=== PATIENT | male | born 1950 | race Caucasian/White ===

== ENCOUNTER 2022-05-21 18:11 | Outpatient (RCR) | payer SELFPAY | END 2023-01-01 15:57 | disposition home or self-care (01) | LOC: MOW 18:11 | PROVIDERS: PCP Internal Medicine; Visit Provider Internal Medicine | DX: Z76.0 Encounter for issue of repeat prescription (principal) | CPT/HCPCS: S5170 ==

== ENCOUNTER 2022-05-24 10:36 | Outpatient (CLI) | payer OTHER, SELFPAY | END 2022-05-24 10:37 | disposition home or self-care (01) | LOC: RAD 10:39 | PROVIDERS: PCP Internal Medicine | DX: R60.9 Edema, unspecified (principal); I50.9 Heart failure, unspecified | CPT/HCPCS: 93306 ==

== ENCOUNTER 2023-06-17 11:01 | Emergency (ER) | payer MEDICARE, OTHER, SELFPAY ==
[2023-06-17 11:07] VITALS: BP 123/75; PULSE 68; RESP 18; TEMP 36.4; O2SAT 95; BMI 39.5
--- NOTE | 2023-06-17 11:09 | ED_ITS ---
HPI - Abdominal Pain General Time Seen by Provider: 11:09 Date Seen: 06/17/23 Chief Complaint: Abdominal Pain Stated Complaint: abdominal pain Time Seen by Provider: 06/17/23 11:08 Source: patient and RN notes reviewed Mode of arrival: ambulatory Limitations: no limitations History of Present Illness HPI narrative: This 73-year-old gentleman is ambulatory into the ED with concern of possible diverticulitis as well as shingles. He last had a bowel movement on Friday, after the bowel movement started to have left flank/abdominal pain. He feels warm today but it is very warm outside, no definite documented fever. Not really passing much gas, no bowel movement since Friday, today is Friday. He does have a history of diverticulitis. He has a asymptomatic kidney stone that is known to be in the right urinary system and has not passed that he knows of. He is primarily a [facility] patient, do not have a current medication list. He has also had a history of diverticulitis before, he has been seen both at the [facility] and here for that. No nausea vomiting, no change in urinary symptoms. He noticed he could not sleep last night, was having left sided severe back pain/flank pain. He noted a rash in his left back that just has cropped up in the last 2 hours. He has had shingles before and the area on his back definitely feels like this. Current medications are MiraLax 17 g daily p.r.n., omeprazole 40 mg daily, lubricant eyedrops, atorvastatin 20 mg, 10 at bedtime, prazosin 5 mg at bedtime, Zyrtec 10 mg daily, vitamin D3 1000 unit with 2 tablets daily, semaglutide 0.5 mg weekly, senna 2 tablets at bedtime does and I would 0.05% topical, fluticasone nasal spray, ketoconazole 2% topical, diclofenac 1% topical gel, ketoconazole 2% topical shampoo, tamsulosin 0.4 mg daily, sertraline in taper, duloxetine 30 mg daily, hydroxychloroquine 200 mg b.i.d., melatonin 3 mg at bedtime, propranolol 20 mg b.i.d. MD elicited complaint: abdominal pain and flank pain Pertinent past history: diverticulitis and kidney stones Onset (ago): day(s) Related Data Previous Rx's Medication Instructions Recorded valacyclovir 1 gram tablet 1,000 mg PO TID #21 tabs 06/17/23 Allergies Allergy/AdvReac Type Severity Reaction Status Date / Time pantoprazole Allergy Unknown Unknown Unverified 06/17/23 12:35 Review of Systems Status of ROS Reports: 6 or more systems reviewed and unremarkable except as noted in History and below PFSH PFSH Social History Smoking Status: Former smoker How often do you have a drink containing alcohol: never AUDIT-C Alcohol total score: 0 Non-prescribed substance use: denies use Exam Const: Vital Signs, click to edit/add: Vital Signs - 24 hr 06/17/23 11:07 Temperature 97.6 F Pulse Rate [Right Pulse Oximeter] 68 Respiratory Rate 18 Blood Pressure [Ri ght Upper Arm] 123/75 Pulse Oximetry 95 Oxygen Delivery Me thod Room Air Documenting provider has reviewed patient's vital signs: yes Common normals: no apparent distress, oriented x3, no limitations, healthy appearing, alert and well nourished General appearance: cooperative, comfortable, well kempt and well developed Nutritional appearance: obese Other: Ambulatory into the ED of his own accord, gait is normal. This is very pleasant conversive patient. HENMT: Common normals: normocephalic, head/scalp atraumatic, hearing grossly normal bilaterally and external nose normal Head and scalp: normocephalic and atraumatic Face and sinus: normal facial exam Nose: external nose normal Eye: Common normals: PERRL, EOMs intact bilaterally, conjunctivae normal and no scleral icterus Conjunctiva: conjunctiva(e) normal Pupil: PERRL Neck & C-Spine: Common normals: full ROM, no lymphadenopathy and supple Chest: Other: At the lower thoracic, upper lumbar region on the left side, has an erythematous patch of rash, macular papular with a few sites looking like there are small vesicles developing, rash is tender, painful on palpation. Looks like this could be an early shingles rash. Resp: Common normals: normal respiratory effort, no retractions, no use of accessory muscles and clear to auscultation bilaterally Effort & inspection: able to speak in complete sentences Auscultation: clear to auscultation bilaterally Cardio: Common normals: regular rate, regular rhythm, S1 normal heart sound, S2 normal heart sound, no gallops, no clicks and no murmurs Rate: regular rate Rhythm: regular rhythm Heart sounds: S1 normal and S2 normal GI: Common normals: Normal to inspection, nondistended, normoactive bowel sounds present, soft to palpation, no hepatosplenomegaly and no masses Palpation: soft and no hepatosplenomegaly Other: Is tender on the mid lateral left abdomen, no rebound or guarding, no masses. Neuro: Common normals: oriented x3 Sensorium/orientation: alert Psych: Appearance: well kempt Course Course Hospital Course: Patient has a rash that certainly seems consistent with shingles. He told nursing staff that his shingles vaccine is up-to-date. There is certainly component of abdominal pain, the pain could be dermatomal from shingles but I do feel we need to rule out intra-abdominal pathology given his examination and change in bowel habits. It is possible he may have to etiologies happening at once with diverticulitis or kidney stone and tyron min shingles. If CT is negative, then we can be reassured that this is all pain from shingles and treat accordingly. We will get baseline labs as well. Reevaluation(s) Time of Reevaluation #1: 13:41 Reevaluation #1: Reviewed with patient his CT results, no obstructing kidney stones but bilateral stones within the kidneys seen. No diverticulitis. No acute intra-abdominal pathology. Labs are reassuring and kidney function is good, he should be able to take Valtrex. Reviewed that his symptoms are from a shingles. Antiviral treatment is indicated, the quicker he gets on this the better the likelihood for successive treatment. Recommend Tylenol 1000 mg 3 times a day baseline for pain. Did discuss that sometimes patients need increased pain management as well as possibly sleep a head with something like amitriptyline. At this time were going to start with the Valtrex and Tylenol. Vital Signs Vital signs: Initial Vital Signs Temperature 97.6 F 06/17/23 11:07 Temperature Source Temporal Artery Scan 06/17/23 11:07 Pulse Rate 68 06/17/23 11:07 Respiratory Rate 18 06/17/23 11:07 Blood Pressure 123/75 06/17/23 11:07 Blood Pressure Mean 91 06/17/23 11:07 Blood Pressure Position Sitting 06/17/23 11:07 Pulse Oximetry 95 06/17/23 11:07 Oxygen Delivery Method Room Air 06/17/23 11:07 Vital Signs Temperature 97.6 F 06/17/23 11:07 Pulse Rate 68 06/17/23 11:07 Respiratory Rate 18 06/17/23 11:07 Blood Pressure 123/75 06/17/23 11:07 Pulse Oximetry 95 06/17/23 11:07 Oxygen Delivery Method Room Air 06/17/23 11:07 Temperature 97.6 F 06/17/23 11:07 Pulse Rate 68 06/17/23 11:07 Respiratory Rate 18 06/17/23 11:07 Blood Pressure 123/75 06/17/23 11:07 Pulse Oximetry 95 06/17/23 11:07 Oxygen Delivery Method Room Air 06/17/23 11:07 MDM - Abdominal Pain Differential Diagnosis Differential diagnosis: Likely abdominal pain, calculus of kidney, constipation, diverticulitis and small bowel obstruction Lab Data Attestation: I reviewed the patient's lab results. Labs: Lab Results 06/17/23 06/17/23 Range/Units 11:28 12:15 WBC 7.70 (4.50-11.00) K/uL RBC 4.72 (4.30-5.90) m/uL Hgb 14.3 (13.5-17.5) gm/dL Hct 41.2 (37.0-53.0) % MCV 87 (80-100) fL MCH 30 (26-34) pg MCHC 35 (32-36) gm/dL RDW Coeff of [place] 12.0 (11.5-15.5) % Plt Count 265 (140-440) K/uL Neut % (Auto) 59.8 (42.0-72.0) % Lymph % (Auto) 26.5 (20-44) % [place] % (Auto) 7.5 (0.0-11.0) % Eos % (Auto) 5.2 (0.0-7.0) % Baso % (Auto) 0.6 (0.0-3.0) % Neut # (Auto) 4.60 (1.7-7.0) K/uL Lymph # (Auto) 2.04 (0.90-2.90) K/uL [place] # (Auto) 0.60 (0.00-0.90) K/UL Eos # (Auto) 0.40 (0.00-0.50) K/uL Baso # (Auto) 0.05 (0.00-0.30) K/uL Abs Immat Gran (auto) 0.03 (0.00-0.30) K/uL Imm/Tot Granulo (auto) 0.4 % Sodium 137 (135-149) mmol/L Potassium 4.2 (3.6-5.1) mmol/L Chloride 103 (96-114) mmol/L Carbon Dioxide 23 (20-32) mmol/L BUN 19 (7-30) mg/dL Creatinine 1.0 (0.5-1.5) mg/dL Estimated Creat Clear 66.92 Estimated GFR 79 ml/min Glucose 106 (60-115) mg/dL Lactate 0.8 (0.5-1.9) mmol/L Calcium 9.6 (8.4-10.6) mg/dL Total Bilirubin 0.6 (0.1-1.5) mg/dL AST 26 (12-35) U/L ALT 27 (4-50) U/L Alkaline Phosphatase 62 (40-150) U/L C-Reactive Protein < 0.5 L (0.5-1.0) mg/dL Total Protein 8.0 (6.0-8.3) g/dL Albumin 4.7 (3.3-5.0) g/dL Urine Color Yellow (Yellow) Urine Appearance Clear (Clear) Urine pH 6.5 (5.0-8.5) Ur Specific [place] 1.015 (1.000-1.030) Urine Protein Negative (Negative) Urine Glucose (UA) Negative (Negative) Urine Ketones Negative (Negative) Urine Blood Negative (Negative) Urine Nitrite Negative (Negative) Urine Bilirubin Negative (Negative) Urine Urobilinogen 0.2 (0.2-1.0) Ur Leukocyte Esterase Negative (Negative) Urine RBC 0-2 (0-2) Urine WBC 0-2 (0-5) Ur Squamous Epith Cells Few (None-Few) Urine Bacteria None (None) POC Creatinine 1.1 (0.6-1.3) mg/dl Imaging Data CT scan - abdomen: Attestation: I have reviewed the pertinent imaging results. Radiologist's impression: Patient: SABRINA WORTHY Facility:[facility] Patient ID:?[id number] Site Patient ID:?[id number]. Site :?[id number] Study:?CT Abdomen/Pelvis 135 cc's Isovue 370-06/17/2023 12:35:08 PM Ordering Physician:Bethany Arriaza Final Report: INDICATION: Left flank/abdomen pain. History of stones/diverticulitis TECHNIQUE: CT abdomen and pelvis acquired with 135 cc Isovue 370 IV contrast. COMPARISON: October 30, 2019. FINDINGS: Lower chest: Scattered atelectasis. Tiny hiatal hernia. Liver: Hepatic steatosis. No suspicious masses. Gallbladder and bile ducts: Unremarkable. No stones or inflammation. No biliary dilatation. Pancreas: Unremarkable. No mass or inflammation. Spleen: Unremarkable. Normal in size. No masses. Adrenal glands: Tiny right myelolipoma. Kidneys: Left superior pole simple renal cyst. Tiny hypodensities in both kidneys, too small to characterize. Bilateral nonobstructing renal stones GI tract: Colonic diverticulosis. Normal in caliber. No sign of mass or inflammation. Normal appendix. Vasculature: Mild aortoiliac arterial calcifications. Abdominal aorta is normal in caliber. Mesenteric arteries are patent. Lymph nodes: No lymphadenopathy. Peritoneum/Abdominal Wall: Unremarkable. No sign of mass or infiltration. No free air or significant free fluid. Pelvis: Prostatectomy. Mildly distended bladder with circumferential wall thickening. Bones: Unremarkable for age. IMPRESSION: No acute intra-abdominal/pelvic abnormality, including obstructive uropathy or diverticulitis as questioned. Bilateral nonobstructing renal stones. Colonic diverticulosis. Please note that all CT scans at this facility use dose modulation, iterative reconstruction, and/or weight-based dosing when appropriate to reduce radiation dose to as low as reasonably achievable. Dictated by Bipin Britton MD @ 06/17/2023 1:24:07 PM (Electronic Signature) Discharge Plan Discharge Clinical Impression: Shingles Patient Disposition: Home, Self-Care Condition: Stable Instructions: Shingles (ED) Additional Instructions: Start Valtrex and take as prescribed. It is important to take this medicine to help minimize symptoms and progression of shingles, likewise to minimize post herpetic neuralgia which is a pain condition after shingles. Tylenol 1000 mg 3 times a day baseline for pain. If with the Tylenol and initiation of Valtrex, your pain is uncontrolled or have ongoing difficulty sleeping, do recommend follow-up with her primary care provider. Activity Level: Activity as Tolerated Prescriptions: New valacyclovir 1 gram tablet 1,000 mg PO TID Qty: 21 0RF Follow Up/Referrals: Luz Andres MD [Staff Physician] - Stand Alone Forms: [facility] Info Instructions
--- NOTE | 2023-06-17 11:17 | CRLHL7_ITS ---
For Patients: As a result of the Century Cures Act, medical imaging exams and procedure reports are released immediately into your electronic medical record. You may view this report before your referring provider. If you have questions, please contact your health care provider. INDICATION: Left flank/abdomen pain. History of stones/diverticulitis TECHNIQUE: CT abdomen and pelvis acquired with 135 cc Isovue 370 IV contrast. COMPARISON: October 30, 2019. FINDINGS: Lower chest: Scattered atelectasis. Tiny hiatal hernia. Liver: Hepatic steatosis. No suspicious masses. Gallbladder and bile ducts: Unremarkable. No stones or inflammation. No biliary dilatation. Pancreas: Unremarkable. No mass or inflammation. Spleen: Unremarkable. Normal in size. No masses. Adrenal glands: Tiny right myelolipoma. Kidneys: Left superior pole simple renal cyst. Tiny hypodensities in both kidneys, too small to characterize. Bilateral nonobstructing renal stones GI tract: Colonic diverticulosis. Normal in caliber. No sign of mass or inflammation. Normal appendix. Vasculature: Mild aortoiliac arterial calcifications. Abdominal aorta is normal in caliber. Mesenteric arteries are patent. Lymph nodes: No lymphadenopathy. Peritoneum/Abdominal Wall: Unremarkable. No sign of mass or infiltration. No free air or significant free fluid. Pelvis: Prostatectomy. Mildly distended bladder with circumferential wall thickening. Bones: Unremarkable for age. IMPRESSION: No acute intra-abdominal/pelvic abnormality, including obstructive uropathy or diverticulitis as questioned. Bilateral nonobstructing renal stones. Colonic diverticulosis. Please note that all CT scans at this facility use dose modulation, iterative reconstruction, and/or weight-based dosing when appropriate to reduce radiation dose to as low as reasonably achievable. Dictated by Bipin Britton MD @ 06/17/2023 1:24:07 PM (Electronically Signed)
[2023-06-17 11:39] LABS: Lactate* 0.8 mmol/L (0.5-1.9)
[2023-06-17 11:41] LABS: Basophils Absolute Auto 0.05 K/uL (0.00-0.30); Basophils Percent Auto 0.6 % (0.0-3.0); Eosinophils Percent Auto 5.2 % (0.0-7.0); Hematocrit 41.2 % (37.0-53.0); Hemoglobin* 14.3 gm/dL (13.5-17.5); Immature Granulocytes Abs Auto 0.03 K/uL (0.00-0.30); Immature Granulocytes Pct Auto 0.4 %; Lymphocytes Absolute Auto 2.04 K/uL (0.90-2.90); Lymphocytes Percent Auto 26.5 % (20-44); Mean Corpuscular HGB Conc 35 gm/dL (32-36); Mean Corpuscular Hemoglobin 30 pg (26-34); Mean Corpuscular Volume 87 fL (80-100); Monocytes Percent Auto 7.5 % (0.0-11.0); Neutrophils Percent Auto 59.8 % (42.0-72.0); Platelet Count* 265 K/uL (140-440); Red Blood Count 4.72 m/uL (4.30-5.90)
[2023-06-17 11:42] LABS: Creatinine, Point-of-Care* 1.1 mg/dl (0.6-1.3)
[2023-06-17 11:45] LABS: Slide Review Reflex No
[2023-06-17 11:54] LABS: Albumin* 4.7 g/dL (3.3-5.0); Chloride* 103 mmol/L (96-114)
[2023-06-17 11:55] LABS: Potassium* 4.2 mmol/L (3.6-5.1); Sodium* 137 mmol/L (135-149)
[2023-06-17 11:57] LABS: Alanine Aminotransferase* 27 U/L (4-50); Alkaline Phosphatase* 62 U/L (40-150); Aspartate Amino Transferase* 26 U/L (12-35); Bilirubin Total* 0.6 mg/dL (0.1-1.5); Blood Urea Nitrogen* 19 mg/dL (7-30); Carbon Dioxide* 23 mmol/L (20-32); Est. Creatinine Clearance* 66.92; Estimated Glomerular Filt Rate 79 ml/min
[2023-06-17 11:58] LABS: Calcium* 9.6 mg/dL (8.4-10.6); Glucose* 106 mg/dL (60-115)
[2023-06-17 12:02] LABS: C Reactive Protein* < 0.5 mg/dL (0.5-1.0)
[2023-06-17 12:37] LABS: Appearance Urine Clear (Clear); Bilirubin Urine Negative (Negative); Blood Urine Negative (Negative); Color Urine Yellow (Yellow); Glucose Urine Negative (Negative); Ketones Urine Negative (Negative); Leukocyte Esterase Urine Negative (Negative); Nitrite Urine Negative (Negative); Protein Urine Negative (Negative); Specific Gravity Urine 1.015 (1.000-1.030); Urobilinogen Urine 0.2 (0.2-1.0); pH Urine 6.5 (5.0-8.5)
[2023-06-17 12:47] LABS: RBC Urine 0-2 (0-2); Squamous Epithelial Cell Urine Few (None-Few); WBC Urine 0-2 (0-5)
== END 2023-06-17 14:00 | disposition home or self-care (01) ==
PROVIDERS: Emergency Provider Family Medicine
DX: B02.9 Zoster without complications (principal)
CPT/HCPCS: 36415; 74177; 80053; 81001; 82565; 83605; 85025; 86140; 99283; 99284; Q9967